=== PATIENT | male | born 1990 | race Two or more races ===

== ENCOUNTER 2020-07-13 12:27 | Emergency (ER) | payer SELFPAY ==
[~2020-07-13] VITALS: Ht 162.6 cm; Wt 117.9 kg
[2020-07-13 12:44] VITALS: BP 150/93
--- NOTE | 2020-07-13 12:44 | NUR ---
ED Nurse Note: Pt walked in to ED c/o bump to penis x2 months. Painful to touch. Denies itchiness/ penile discharges. PT AAOX4, verbally responsive. No SOB, on room air.
[2020-07-13] MEDS ORDERED: Bicillin LA 1.2MMU/2ML SYR IM ONE (13:15)
[2020-07-13] MEDS ORDERED: CEPHALEXIN500 MG ORAL (13:24)
--- NOTE | 2020-07-13 13:30 | NUR ---
ED Nurse Note: Pt cleared by ERMD for discharge. DC instructions/prescription was given and explained to pt and verbalized understanding of teachings. All medical deviecs such as ID band removed. Pt is AAO x4, ambulatory and left with all personal belongings.
--- NOTE | 2020-07-13 15:18 | Emergency Room Report ---
History of Present Illness General Chief Complaint: Male Urogenital Problems Source: Patient Present Illness HPI 29-year-old male presents to ED. States that he has a bump on his penis for the last 3 weeks. States it is somewhat painful. Denies any itchiness. Denies any discharge. Concern for STD. Denies any scrotal tenderness. No other aggravating relieving factors. Denies any other associated symptoms Allergies: Coded Allergies: No Known Allergies (Unverified , 07/13/20) COVID-19 Screening Contact w/high risk pt: No Experienced COVID-19 symptoms?: No COVID-19 Testing performed LOCK TECHNICIAN: No Patient History Past Medical History: none Past Surgical History: none Pertinent Family History: none Social History: Denies: smoking, alcohol use, drug use Immunizations: UTD Reviewed Nursing Documentation: PMH: Agreed; PSxH: Agreed Nursing Documentation-PMH Past Medical History: No Stated History Review of Systems All Other Systems: negative except mentioned in HPI Physical Exam Vital Signs Date Time Temp Pulse Resp B/P (MAP) Pulse Ox O2 Delivery O2 Flow Rate FiO2 07/13/20 12:37 98.6 94 19 150/93 (112) 98 Room Air Sp02 EP Interpretation: reviewed, normal General Appearance: no apparent distress, alert, GCS 15, non-toxic Head: normocephalic, atraumatic Eyes: bilateral eye normal inspection, bilateral eye PERRL ENT: hearing grossly normal, normal pharynx, no angioedema, normal voice Neck: full range of motion, supple/symm/no masses Respiratory: chest non-tender, lungs clear, normal breath sounds, speaking full sentences Cardiovascular #1: regular rate, rhythm, no edema Cardiovascular #2: 2+ carotid (R), 2+ carotid (L), 2+ radial (R), 2+ radial (L), 2+ dorsalis pedis (R), 2+ dorsalis pedis (L) Gastrointestinal: normal bowel sounds, non tender, soft, non-distended, no guarding, no rebound Rectal: deferred Genitourinary: normal inspection, no CVA tenderness, other - erythematous bump noted on foreskin. no dischare Musculoskeletal: back normal, normal range of motion, gait/station normal, non- tender Neurologic: alert, motor strength/tone normal, oriented x3, sensory intact, responsive, speech normal Psychiatric: judgement/insight normal, memory normal, mood/affect normal, no suicidal/homicidal ideation Reflexes: 3+ bicep (R), 3+ bicep (L), 3+ tricep (R), 3+ tricep (L), 3+ knee (R), 3+ knee (L) Lymphatic: no adenopathy Medical Decision Making Diagnostic Impression: Primary Impression: Abnormal urogenital findings ER Course Hospital Course 29 yo male presents with lesion to penis Differential diagnoses include: trichimonas, gonorrhea, chlamydia Clinical course Patient placed on stretcher. After initial history physical exam reveals a yo meredith male in no acute distress. A erythematous bump noted to the penile shaft. No fluctuance or discharge. Remainder of exam unremarkable Katherine findings with patient. Concern for STI. Consideration for syphilis. Given pen G in ED. Will discharge with antibiotics. Safe for discharge close outpatient follow-up. I will provide referrals Diagnosis -abnormal urogenital findings Stable and discharged home with prescriptions for Rx Keflex Instructed to followup with PMD. Return to ED if symptoms recur or worsen Last Vital Signs Date Time Temp Pulse Resp B/P (MAP) Pulse Ox O2 Delivery O2 Flow Rate FiO2 07/13/20 13:30 98.6 88 16 148/86 98 Room Air Status: improved Disposition: HOME, SELF-CARE Condition: Stable Scripts Cephalexin* (KEFLEX*) 500 Mg Capsule 500 MG ORAL EVERY 6 HOURS for 7 Days, CAP Prov: Caio Norton MD 07/13/20 Referrals: Shawn Lopez. [facility] Patient Instructions: Sexually Transmitted Disease, [id number] Caio Norton MD Jul 13, 2020 15:17
== END 2020-07-13 13:30 | disposition home or self-care (01) ==
LOC: EMR 13:10
DX: N48.9 Disorder of penis, unspecified (principal)
CPT/HCPCS: 99282; J0570; J0561